=== PATIENT | male | born 1935 | race Caucasian/White ===

== ENCOUNTER 2016-04-30 08:18 | Emergency (ER) | payer MEDICARE, BC ==
[~2016-04-30] VITALS: Ht 182.9 cm; Wt 104.6 kg
[~2016-04-30 08:18] MED LIST: AMLO10 PO; ASPI-110 PO; BUSPAR PO; CELE200C PO; FERR1TAB36 PO; FURO80TA PO; GABA100C4 PO; MUCI600T PO; MULT1TAB84 PO; NEBI20 PO; OMEP20TA PO; POTA-243 PO; SINE25TA PO; TAMS0.4C4 PO; ZOCO20TA PO
[2016-04-30 08:27] VITALS: BP 139/63; PULSE 61; RESP 18; TEMP 97.7
[2016-04-30] MEDS ORDERED: VIAG25TA PO (08:44)
--- NOTE | 2016-04-30 08:57 | PD ---
HPI Chief Complaint: Headache Time Seen by Provider: 08:45 Travel History International Travel<30 days: No Contact w/Intl Traveler<30days: No Traveled to known affect area: No History of Present Illness HPI Patient presents with complaints of ringing in his ears for 3 days. Denies any head trauma. Denies any recent illness. Denies any nausea vomiting diarrhea or fever. He does take aspirin daily. He has been cleaning his ears with Q- tips to attempt to resolve this issue. PFSH Past Medical History Hx Anticoagulant Therapy: Yes (asa 81mg) Arthritis: Yes Asthma: No Autoimmune Disease: No Blood Disorders: No Anxiety: Yes Depression: No Heart Rhythm Problems: No Cancer: Yes (SKIN CANCER-NOSE, chin, shoulder, and back; COLON CANCER) Cardiac Catheterization: Yes Cardiovascular Problems: Yes (htn on meds) High Cholesterol: Yes Chemotherapy: Yes (1968) Chest Pain: No Congestive Heart Failure: No COPD: No Cerebrovascular Accident: No Diabetes: Yes Patient Takes Glucophage: No Diminished Hearing: No Diverticulitis: Yes Endocrine: No Gastrointestinal Disorders: Yes (DIVERTICULITIS) GERD: Yes Genitourinary: No Headaches: No Hepatitis: No Hiatal Hernia: Yes Heparin Induced Thrombocytopen: No Hypertension: Yes Immune Disorder: No Implanted Vascular Access Dvce: No Kidney Stones: No Musculoskeletal: Yes Neurologic: Yes (PARKINSONS) Parkinson's Disease: Yes Psychiatric: Yes Reproductive: No Respiratory: Yes (copd) Immunizations Current: Yes Migraines: No Radiation Therapy: Yes Renal Failure: No Seizures: No Sleep Apnea: No Thyroid Disease: No Ulcer: No Past Surgical History Abdominal Surgery: Yes (BILATERAL INGUINAL HERNIA REPAIR; COLON RESECTION) AICD: No Body Medical Devices: BILATERAL KNEES; 2 rods, plate, 18 screws Cardiac Surgery: No Cholecystectomy: Yes Coronary Artery Bypass Graft: No Ear Surgery: No Endocrine Surgery: No Eye Surgery: Yes (WALDO BLEPH 2012 /CATARACTS) Genitourinary Surgery: No Hysterectomy: No Joint Replacement: Yes (BILATERAL KNEES) Neurologic Surgery: No Oral Surgery: No Pacemaker: No Other Surgery: Yes (NASAL SX SECONDAY TO [place]) Social History Alcohol Use: Yes (OCCASSIONALY ) Tobacco Use: No Substance Use: No Allergies-Medications (Allergen,Severity, Reaction): Coded Allergies: Morphine (Verified Allergy, Intermediate, 04/30/16) Reported Meds & Prescriptions Reported Meds & Active Scripts Active Norvasc (Amlodipine Besylate) 10 Mg Tab 10 Mg PO DAILY 30 Days Reported Viagra (Sildenafil Citrate) 25 Mg Tab Unknown Dose PO DAILY PRN Gabapentin 100 Mg Cap 100 Mg PO TID Sinemet (Carbidopa-Levodopa) 25-100 Mg Tab 1 Tab PO TID [Buspar] 15 Mg PO TID Zocor (Simvastatin) 20 Mg Tab 20 Mg PO DAILY Omeprazole 20 Mg Tab 20 Mg PO DAILY Bystolic (Nebivolol) 20 Mg Tab 20 Mg PO DAILY Multivitamin Adults (Multiple Vitamins W/ Minerals) 1 Tab 1 Tab PO DAILY Iron (Ferrous Sulfate) 325 Mg Tab 325 Mg PO TIDPC Aspirin 81 (Aspirin) 81 Mg Tabdr 81 Mg PO DAILY Tamsulosin (Tamsulosin HCl) 0.4 Mg Cap 0.4 Mg PO HS Furosemide 80 Mg Tab 80 Mg PO DAILY Klor-Con 10 (Potassium Chloride) 10 Meq Tab 5 Meq PO DAILY Review of Systems General / Constitutional: No: Fever Eyes: No: Visual changes HENT: Positive: Other (ringing in his ears), No: Headaches Cardiovascular: No: Chest Pain or Discomfort Respiratory: No: Shortness of Breath Gastrointestinal: No: Abdominal Pain Genitourinary: No: Dysuria Musculoskeletal: No: Pain Skin: No Rash Neurologic: No: Weakness Psychiatric: No: Depression Endocrine: No: Polydipsia Hematologic/Lymphatic: No: Easy Bruising Physical Exam Narrative GENERAL: Well-nourished, well-developed patient. SKIN: Warm and dry. HEAD: Normocephalic. Right external canal is mildly erythematous TM is cloudy without perforation or erythema Left external canal reveals small amount of wax with trauma to the canal and a small coagulation of bright red blood, TM is cloudy without perforation or erythema EYES: No scleral icterus. No injection or drainage. NECK: Supple, trachea midline. No JVD or lymphadenopathy. CARDIOVASCULAR: Regular rate and rhythm without murmurs, gallops, or rubs. RESPIRATORY: Breath sounds equal bilaterally. No accessory muscle use. GASTROINTESTINAL: Abdomen soft, non-tender, nondistended. MUSCULOSKELETAL: No cyanosis, or edema. BACK: Nontender without obvious deformity. No CVA tenderness. Data Data Last Documented VS Vital Signs Date Time Temp Pulse Resp B/P Pulse Ox O2 Delivery O2 Flow Rate FiO2 04/30/16 08:35 16 96 Room Air 04/30/16 08:27 97.7 61 139/63 [facility] Medical Decision Making Medical Screen Exam Complete: Yes Emergency Medical Condition: Yes Differential Diagnosis Tinnitus, medication side effect, acoustic neuroma, otitis media, Mnire's Narrative Course Assessment and plan discussed with patient at bedside, ears were cleaned using gentle irrigation. Diagnosis Primary Impression: Bilateral tinnitus Patient Instructions: General Instructions Additional Instructions: Encouraged to hold aspirin until he can follow up with PCP. Encourage cessation of Q-tip use. External canal drops for damage caused by Q-tips. Med/Other Pt SpecificInfo: Prescription(s) given Scripts Hlpvkici-Xominooka-LB Otic Drops (Cortisporin HC Otic Drops)3.5-10,000-1 Mg- Units-% Soln4 Drop EACH EAR QID #1 BOTTLE Ref 0 Prov:Janusz Huang MD 04/30/16 Disposition: 01 DISCHARGE HOME Condition: Good Janusz Huang MD Apr 30, 2016 08:57
[2016-04-30] MEDS ORDERED: CORT1SOL EACH EAR (09:10)
== END 2016-04-30 09:28 | disposition home or self-care (01) ==
LOC: PHED 08:18
DX: H93.13 Tinnitus, bilateral (principal); Z79.82 Long term (current) use of aspirin; M19.90 Unspecified osteoarthritis, unspecified site; F41.9 Anxiety disorder, unspecified; I10 Essential (primary) hypertension; E78.00 Pure hypercholesterolemia, unspecified; E11.9 Type 2 diabetes mellitus without complications
CPT/HCPCS: 99283

== ENCOUNTER 2016-08-23 08:49 | Emergency (ER) | payer MEDICARE, BC ==
[~2016-08-23] VITALS: Ht 182.9 cm; Wt 102.9 kg
[~2016-08-23 08:49] MED LIST changes: -CELE200C PO; +CORT1SOL EACH EAR; -MUCI600T PO; +VIAG25TA PO
[2016-08-23 08:56] VITALS: BP 121/58; PULSE 63; RESP 16; TEMP 97.5; O2SAT 96
[2016-08-23] MEDS ORDERED: BUSP15TA PO (09:10)
[2016-08-23] MEDS ORDERED: COLA100C3 PO (09:12)
[2016-08-23] MEDS ORDERED: ALBU0.08 NEB (09:12)
[2016-08-23] MEDS ORDERED: TRIA1TAB21 PO (09:12)
[2016-08-23] MEDS ORDERED: VITA100064 PO (09:12)
[2016-08-23] MEDS ORDERED: GLUC1CAP14 PO (09:13)
--- NOTE | 2016-08-23 09:31 | PD ---
HPI Chief Complaint: Fall Time Seen by Provider: 09:20 Travel History International Travel<30 days: No Contact w/Intl Traveler<30days: No Traveled to known affect area: No History of Present Illness HPI This is an 80 year old male who presents to the emergency department reporting left hip pain for 2 weeks. Pt. reports that 2.5 weeks ago he fell while he was going up some stairs. After he thought he could treat himself at home with pain medication. The pain is sharp, constant, severe, worse with weight bearing and turning on his side. He denies any numbness or weakness. He denies any other injuries. PFSH Past Medical History Hx Anticoagulant Therapy: Yes (asa 81mg) Arthritis: Yes Asthma: No Autoimmune Disease: No Blood Disorders: No Anxiety: Yes Depression: No Heart Rhythm Problems: No Cancer: Yes (SKIN CANCER-NOSE, chin, shoulder, and back; COLON CANCER) Cardiac Catheterization: Yes Cardiovascular Problems: Yes (htn on meds) High Cholesterol: Yes Chemotherapy: Yes (1967) Chest Pain: No Congestive Heart Failure: No COPD: No Cerebrovascular Accident: No Diabetes: Yes Patient Takes Glucophage: No Diminished Hearing: No Diverticulitis: Yes Endocrine: No Gastrointestinal Disorders: Yes (DIVERTICULITIS) GERD: Yes Genitourinary: No Headaches: No Hepatitis: No Hiatal Hernia: Yes Heparin Induced Thrombocytopen: No Hypertension: Yes Immune Disorder: No Implanted Vascular Access Dvce: No Kidney Stones: No Musculoskeletal: Yes Neurologic: Yes (PARKINSONS) Parkinson's Disease: Yes Psychiatric: Yes Reproductive: No Respiratory: Yes (copd) Immunizations Current: Yes Migraines: No Radiation Therapy: Yes Renal Failure: No Seizures: No Sleep Apnea: No Thyroid Disease: No Ulcer: No Influenza Vaccination: Yes ?: Not Past Surgical History Abdominal Surgery: Yes (BILATERAL INGUINAL HERNIA REPAIR; COLON RESECTION) AICD: No Body Medical Devices: BILATERAL KNEES; 2 rods, plate, 18 screws Cardiac Surgery: No Cholecystectomy: Yes Coronary Artery Bypass Graft: No Ear Surgery: No Endocrine Surgery: No Eye Surgery: Yes (WALDO BLEPH 2012 /CATARACTS) Genitourinary Surgery: No Hysterectomy: No Joint Replacement: Yes (BILATERAL KNEES) Neurologic Surgery: No Oral Surgery: No Pacemaker: No Other Surgery: Yes (NASAL SX SECONDAY TO [place]) Social History Alcohol Use: Yes (OCCASSIONALY ) Tobacco Use: No Substance Use: No Allergies-Medications (Allergen,Severity, Reaction): Coded Allergies: Morphine (Verified Allergy, Intermediate, 08/23/16) Reported Meds & Prescriptions Reported Meds & Active Scripts Active Reported Glucosamine-Chondroitin 500-400 Mg Cap 1 Cap PO DAILY Albuterol Neb (Albuterol Sulfate) 2.5 Mg/3 Ml Neb 2.5 Mg NEB Q4HR NEB PRN Colace (Docusate Sodium) 100 Mg Cap 100 Mg PO BID Vitamin D (Cholecalciferol) 1,000 Unit Tab 1,000 Units PO DAILY Triazolam 0.25 Mg Tab 0.25 Mg PO HS Buspirone (Buspirone HCl) 15 Mg Tab 15 Mg PO TID Viagra (Sildenafil Citrate) 25 Mg Tab Unknown Dose PO DAILY PRN Gabapentin 100 Mg Cap 100 Mg PO TID Sinemet (Carbidopa-Levodopa) 25-100 Mg Tab 1 Tab PO TID Zocor (Simvastatin) 20 Mg Tab 20 Mg PO DAILY Omeprazole 20 Mg Tab 20 Mg PO DAILY Bystolic (Nebivolol) 20 Mg Tab 10 Mg PO DAILY Multivitamin Adults (Multiple Vitamins W/ Minerals) 1 Tab 1 Tab PO DAILY Iron (Ferrous Sulfate) 325 Mg Tab 325 Mg PO TIDPC Aspirin 81 (Aspirin) 81 Mg Tabdr 81 Mg PO DAILY Tamsulosin (Tamsulosin HCl) 0.4 Mg Cap 0.4 Mg PO HS Furosemide 80 Mg Tab 80 Mg PO DAILY Klor-Con 10 (Potassium Chloride) 10 Meq Tab 3 Meq PO DAILY Review of Systems Except as stated in HPI: all other systems reviewed are Neg Physical Exam Narrative GENERAL:Well appearing, no acute distress SKIN: Focused skin assessment warm and dry. HEAD: Atraumatic. Normocephalic. EYES: Pupils equal and round. No injection or drainage. ENT: Moist mucous membranes NECK: Trachea midline. CARDIOVASCULAR: Regular rate and rhythm. No murmur appreciated. 2+ d.p. pulse on the left lower extremity with normal capillary refill. RESPIRATORY: Clear to auscultation. Breath sounds equal bilaterally. GASTROINTESTINAL: Abdomen soft, non-tender, nondistended. MUSCULOSKELETAL: Pain with hip flexion on the left side NEUROLOGICAL: Awake and alert. No obvious cranial nerve deficits. 4+/5 strength bilaterally (baseline) PSYCHIATRIC: Appropriate mood and affect; insight and judgment normal. Data Data Last Documented VS Vital Signs Date Time Temp Pulse Resp B/P Pulse Ox O2 Delivery O2 Flow Rate FiO2 08/23/16 10:47 18 131/59 97 Room Air 08/23/16 08:56 97.5 63 Orders Femur (Ap & Lat/2vws) (08/23/16 ) Hip, Uni(Ap&Lat) W Ap Pelvis (08/23/16 ) Spine, Lumbar Comp W/Obliq (08/23/16 ) Ct Hip W/O Contrast (08/23/16 ) MDM Medical Decision Making Medical Screen Exam Complete: Yes Emergency Medical Condition: Yes Interpretation(s) Afebrile, no tachycardia, normotensive Last 24 hours Impressions Lumbar Spine X-Ray 08/23/16 0000 Signed Impressions: Service Date/Time: Tuesday, August 23, 2016 10:46 - CONCLUSION: 1. Moderate degenerative changes as described above. There is no evidence of acute fracture. Bud Martinez MD Hip and Pelvis X-Ray 08/23/16 0000 Signed Impressions: Service Date/Time: Tuesday, August 23, 2016 10:45 - CONCLUSION: 1. Mild degenerative changes as described above. There is no evidence of acute fracture. Bud Martinez MD Femur X-Ray 08/23/16 0000 Signed Impressions: Service Date/Time: Tuesday, August 23, 2016 10:44 - CONCLUSION: 1. Previous ORIF 2. There is no evidence of acute fracture. Bud Martinez MD Differential Diagnosis Femur fracture, pubic ramus fracture, hip sprain, compression fracture Narrative Course This is an 80-year-old male who presents to the emergency department with left hip pain that's been going on for 2-1/2 weeks ever since he had a fall. He also reports chronic pain proximal to the knee associated with a prior femur fracture there. He has a normal neurovascular exam. He has very minimal pain with range of motion of the hip except with some internal rotation. He's been able to weight-bear and has been walking with a walker for 2-1/2 weeks. I have a very low suspicion for occult femur fracture given his benign exam but given the persistent pain I performed a CT of the hip which was negative for fracture. Patient is safe to follow-up with Dr. Ng as an outpatient. I Diagnosis Primary Impression: Hip pain Qualified Code: M25.552 - Pain of left hip joint Patient Instructions: General Instructions Additional Instructions: If you develop numbness, weakness, severe pain in your hip, or difficulty walking return to the emergency department. Follow-up with Dr. Ng as soon as possible. Med/Other Pt SpecificInfo: No Change to Meds Disposition: 01 DISCHARGE HOME Condition: Stable Nyla Monsalve MD August 23, 2016 09:30
[2016-08-23 10:47] VITALS: BP 131/59; RESP 18; O2SAT 97
--- NOTE | 2016-08-23 10:55 | RADHPO ---
EXAM DATE/TIME: 08/23/2016 10:44 [facility] COMPARISON: FEMUR LEFT (AP & LAT/2VWS), June 25, 2015, 8:03. INDICATIONS : Fall 2 weeks ago, left hip pain. MEDICAL HISTORY : None. SURGICAL HISTORY : Total knee replacement, left. left femur fracture ENCOUNTER: Initial ACUITY: 2 weeks PAIN SCORE: 7/10 LOCATION: Left posterior hip FINDINGS: There is internal fixation of a fracture of the femur with screws and cerclage wire. There is no evid ence of acute fracture. Bony mineralization is normal. Longstem total knee arthroplasty is present. Joint spaces are maintained. CONCLUSION: 1. Previous ORIF 2. There is no evidence of acute fracture. Bud Martinez MD on August 23, 2016 at 10:51 Board Certified Radiologist. This report was verified electronically.
--- NOTE | 2016-08-23 10:56 | RADHPO ---
EXAM DATE/TIME: 08/23/2016 10:45 [facility] COMPARISON: No previous studies available for comparison. INDICATIONS : Fall, left hip pain. MEDICAL HISTORY : None. SURGICAL HISTORY : Total knee replacement, left. left femur fracture ENCOUNTER: Initial ACUITY: 2 weeks PAIN SCORE: 7/10 LOCATION: Left posterior hip FINDINGS: There is no evidence of acute fracture. Bony mineralization is normal. There is mild central narrowin g of the hip joints bilaterally. Prominent vascular calcification is present. Degenerative changes pr esent at the lumbosacral junction. CONCLUSION: 1. Mild degenerative changes as described above. There is no evidence of acute fracture. Bud Martinez MD on August 23, 2016 at 10:52 Board Certified Radiologist. This report was verified electronically.
--- NOTE | 2016-08-23 10:58 | RADHPO ---
EXAM DATE/TIME: 08/23/2016 10:46 [facility] COMPARISON: No previous studies available for comparison. INDICATIONS : Fall 2 weeks ago, low back pain. MEDICAL HISTORY : None. SURGICAL HISTORY : None. ENCOUNTER: Initial ACUITY: 2 weeks PAIN SCORE: 3/10 LOCATION: low back FINDINGS: There is multilevel disc space narrowing and marginal osteophyte formation maximal at the thoracolumb ar junction. There is multilevel facet arthritis maximal at L5-S1. Prominent vascular calcification i s present. No spondylolysis or spondylolisthesis is present. There are surgical clips in the right up per quadrant compatible with prior cholecystectomy. CONCLUSION: 1. Moderate degenerative changes as described above. There is no evidence of acute fracture. Bud Martinez MD on August 23, 2016 at 10:54 Board Certified Radiologist. This report was verified electronically.
--- NOTE | 2016-08-23 12:41 | RADHPO ---
EXAM DATE/TIME: 08/23/2016 11:51 [facility] COMPARISON: No previous studies available for comparison. INDICATIONS : Fall 2 weeks ago, Left hip pain. RADIATION DOSE: 24.89 CTDIvol (mGy) MEDICAL HISTORY : Parkinsons, skin CA, SURGICAL HISTORY : Total knee replacement, left. Total knee replacement, right. ENCOUNTER: Initial ACUITY: 2 weeks PAIN SCALE: 4/10 LOCATION: Left hip TECHNIQUE: Volumetric scanning of the hip was performed. Using automated exposure control and adjustment of the mA and/or kV according to patient size, radiation dose was kept as low as reasonably achievable to o btain optimal diagnostic quality images. FINDINGS: The prostate gland is moderately enlarged impinging on the bladder base. No soft tissue hematomas kym ntified. There is no evidence of acute fracture. Bony mineralization is normal. There is mild central narrowin g of the joint space. 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 CONCLUSION: 1. There is no evidence of acute fracture. Bud Martinez MD on August 23, 2016 at 12:35 Board Certified Radiologist. This report was verified electronically.
[2016-08-23 13:01] VITALS: BP 161/73
== END 2016-08-23 13:04 | disposition home or self-care (01) ==
LOC: PHED 08:49
DX: M25.552 Pain in left hip (principal); M17.12 Unilateral primary osteoarthritis, left knee; F41.9 Anxiety disorder, unspecified; E78.00 Pure hypercholesterolemia, unspecified; I10 Essential (primary) hypertension; K21.9 Gastro-esophageal reflux disease without esophagitis; E11.9 Type 2 diabetes mellitus without complications; G20 Parkinson's disease; J44.9 Chronic obstructive pulmonary disease, unspecified
CPT/HCPCS: 72110; 73502; 73552; 73700

== ENCOUNTER 2017-03-22 16:49 | Emergency (ER) | payer MEDICARE, BC ==
[~2017-03-22] VITALS: Ht 182.9 cm; Wt 104.0 kg
[~2017-03-22 16:49] MED LIST changes: +ALBU0.08 NEB; -AMLO10 PO; -ASPI-110 PO; +ASPI1TAB57 PO; +BUSP15TA PO; -BUSPAR PO; +COLA100C3 PO; -CORT1SOL EACH EAR; +GLUC1CAP14 PO; +KLOR10TA PO; -OMEP20TA PO; +OMEP20TA93 PO; -POTA-243 PO; +TRIA1TAB21 PO; +VITA100064 PO
[2017-03-22 16:59] VITALS: PULSE 74; RESP 16; TEMP 97.3; O2SAT 97
--- NOTE | 2017-03-22 17:02 | PD ---
HPI Chief Complaint: Fall Time Seen by Provider: 17:02 Travel History International Travel<30 days: No Contact w/Intl Traveler<30days: No Traveled to known affect area: No History of Present Illness HPI 81-year-old male was brought to the emergency room by his after he lost balance and fell backwards from his walker. Patient has history of Parkinson's disease. He thinks that his walker hit a pothole. He has been bleeding from the back of his head. He did not lose consciousness. Patient is not on any blood thinners. He did not remember his last tetanus shot. Vital signs are stable. [facility] Past Medical History Narrative Medical List of his past medical, surgical, social and family history is reviewed from the nursing note. Hx Anticoagulant Therapy: Yes (asa 81mg) Arthritis: Yes Asthma: No Autoimmune Disease: No Blood Disorders: No Anxiety: Yes Depression: No Heart Rhythm Problems: No Cancer: Yes (SKIN CANCER-NOSE, chin, shoulder, and back; COLON CANCER) Cardiac Catheterization: Yes Cardiovascular Problems: Yes (htn on meds) High Cholesterol: Yes Chemotherapy: Yes (1968) Chest Pain: No Congestive Heart Failure: No COPD: No Cerebrovascular Accident: No Diabetes: Yes Diminished Hearing: No Diverticulitis: Yes Endocrine: No Gastrointestinal Disorders: Yes (DIVERTICULITIS) GERD: Yes Genitourinary: No Headaches: No Hepatitis: No Hiatal Hernia: Yes Heparin Induced Thrombocytopen: No Hypertension: Yes Immune Disorder: No Implanted Vascular Access Dvce: No Kidney Stones: No Musculoskeletal: Yes Neurologic: Yes (PARKINSONS) Parkinson's Disease: Yes Psychiatric: Yes Reproductive: No Respiratory: Yes (copd) Immunizations Current: Yes Migraines: No Radiation Therapy: Yes Renal Failure: No Seizures: No Sleep Apnea: No Thyroid Disease: No Ulcer: No Past Surgical History Abdominal Surgery: Yes (BILATERAL INGUINAL HERNIA REPAIR; COLON RESECTION) AICD: No Body Medical Devices: BILATERAL KNEES; 2 rods, plate, 18 screws Cardiac Surgery: No Cholecystectomy: Yes Coronary Artery Bypass Graft: No Ear Surgery: No Endocrine Surgery: No Eye Surgery: Yes (WALDO BLEPH 2012 /CATARACTS) Genitourinary Surgery: No Hysterectomy: No Joint Replacement: Yes (BILATERAL KNEES) Neurologic Surgery: No Oral Surgery: No Pacemaker: No Other Surgery: Yes (NASAL SX SECONDAY TO [place]) Social History Alcohol Use: Yes (OCCASSIONALY ) Tobacco Use: No Substance Use: No Allergies-Medications (Allergen,Severity, Reaction): Coded Allergies: morphine (Unverified Allergy, Intermediate, 03/23/17) Comments List of his allergies reviewed from the nursing note. Reported Meds & Prescriptions Reported Meds & Active Scripts Active Bacitracin Topical 500 Unit/Gm Oint 1 Applic TOPICAL BID Reported Halcion (Triazolam) 0.25 Mg Tab 0.25 Mg PO HS Ropinirole 0.25 Mg Tab 0.25 Mg PO TID Iron (Ferrous Gluconate) 236 Mg (27 Mg Iron) Tab 1 Tab PO TID Arthri-Flex Tablet (Gluc/MSM/Colgn2/Hyal/Antiarth3) 375 Mg-375 Mg-20 Mg Tablet 1 Tab PO DAILY Cosamin DS (Glucosamine-Chondroitin) 500-400 Mg Tab 1 Tab PO DAILY Multivitamins (Multiple Vitamin) 1 Cap Cap 1 Cap PO DAILY Losartan (Losartan Potassium) 100 Mg Tab 100 Mg PO DAILY Potassium Chloride ER (Potassium Chloride) 8 Meq Tab 8 Meq PO DAILY Albuterol Neb (Albuterol Sulfate) 2.5 Mg/3 Ml Neb 2.5 Mg NEB Q4HR NEB PRN Vitamin D3 (Cholecalciferol) 1,000 Unit Tab 1,000 Units PO DAILY Buspirone (Buspirone HCl) 15 Mg Tab 15 Mg PO TID Gabapentin 100 Mg Cap 100 Mg PO TID Sinemet (Carbidopa-Levodopa) 25-100 Mg Tab 1 Tab PO TID Zocor (Simvastatin) 20 Mg Tab 20 Mg PO DAILY Omeprazole 20 Mg Tab 20 Mg PO DAILY Bystolic (Nebivolol) 20 Mg Tab 10 Mg PO DAILY Aspirin 81 (Aspirin) 81 Mg Tabdr 81 Mg PO DAILY Tamsulosin (Tamsulosin HCl) 0.4 Mg Cap 0.4 Mg PO HS Furosemide 80 Mg Tab 80 Mg PO DAILY Narrative Medication List of his home medications reviewed from the nursing note. Review of Systems Except as stated in HPI: all other systems reviewed are Neg Neurologic: Positive: Headache Physical Exam Narrative GENERAL: Awake, alert, elderly, Parkinson's, mild distress SKIN: Focused skin assessment warm/dry. Left elbow superficial abrasion with no active bleeding HEAD: Occipital scalp has a laceration which is bleeding. There is 3 stitches from his previous biopsy EYES: Pupils equal and round. No scleral icterus. No injection or drainage. ENT: No nasal bleeding or discharge. Mucous membranes pink and moist. NECK: Trachea midline. No JVD. CARDIOVASCULAR: Regular rate and rhythm. No murmur appreciated. RESPIRATORY: No accessory muscle use. Clear to auscultation. Breath sounds equal bilaterally. GASTROINTESTINAL: Abdomen soft, non-tender, nondistended. Hepatic and splenic margins not palpable. MUSCULOSKELETAL: No obvious deformities. No clubbing. No cyanosis. No edema. NEUROLOGICAL: Awake and alert. No obvious cranial nerve deficits. Motor grossly within normal limits. Normal speech. PSYCHIATRIC: Appropriate mood and affect; insight and judgment normal. Data Data Last Documented VS Orders Orders Ct Brain W/O Iv Contrast(Rout) (03/22/17 ) Ct Cerv Spine W/O Contrast (03/22/17 ) Tetanus/Diphtheria Tox Adult (Tetanus/Di (03/22/17 17:30) Lidocai-Epi 2%-1:100,000 Inj (Xylocaine- (03/22/17 18:30) Acetaminophen (Tylenol) (03/22/17 18:45) Ed Discharge Order (03/22/17 19:03) MDM Medical Decision Making Medical Screen Exam Complete: Yes Emergency Medical Condition: Yes Medical Record Reviewed: Yes Differential Diagnosis Intracranial bleed, cervical fracture Narrative Course 6:[address] scan of the head and C-spine are negative. His wound will be repaired by the PA. Please refer to his procedure note. Patient was given tetanus shot and Tylenol for his headache. I will discharge him home. Procedures EKG Prior to Arrival: No Diagnosis Primary Impression: Fall Qualified Codes: W19.XXXA - Unspecified fall, initial encounter Additional Impressions: Closed head injury Qualified Codes: S09.90XA - Unspecified injury of head, initial encounter Abrasion Referrals: Primary Care Physician Additional Instructions: The stitches need to come out in 7-10 days. Apply bacitracin twice a day until the stitches are out. Return to the ER if the condition worsens or any other new concerns. Take Tylenol in case of headache. Med/Other Pt SpecificInfo: Prescription(s) given Scripts Bacitracin Topical (Bacitracin Topical) 500 Unit/Gm Oint 1 APPLIC TOPICAL BID for Infection, #30 GM 0 Refills Prov: Michelle Grayson MD 03/22/17 Disposition: 01 DISCHARGE HOME Condition: Stable Michelle Grayson MD Mar 22, 2017 17:02
[2017-03-22] MEDS ORDERED: TETANUS/DIPHTHERIA TOXOID ADULT 0.5 ML VIAL IM ONE (17:30)
[2017-03-22] MEDS ORDERED: MISC1TAB PO (17:41)
[2017-03-22] MEDS ORDERED: MULTCAP3 PO (17:41)
[2017-03-22] MEDS ORDERED: POTA8TAB PO (17:41)
[2017-03-22] MEDS ORDERED: LOSA100T PO (17:41)
[2017-03-22] MEDS ORDERED: COSA500T PO (17:41)
--- NOTE | 2017-03-22 17:44 | RADRPT ---
EXAM DATE/TIME: 03/22/2017 17:19 [facility] COMPARISON: CT BRAIN W/O CONTRAST, April 07, 2016, 11:29. INDICATIONS : Trauma, fall backwards. RADIATION DOSE: 65.35 CTDIvol (mGy) MEDICAL HISTORY : Hypertension. Parkinsons. Carcinoma, skin. SURGICAL HISTORY : Skin cancer removed posterior scalp. ENCOUNTER: Initial ACUITY: 1 day PAIN SCALE: 7/10 LOCATION: posterior cranial. TECHNIQUE: Multiple contiguous axial images were obtained of the head. Using automated exposure control and adj ustment of the mA and/or kV according to patient size, radiation dose was kept as low as reasonably a chievable to obtain optimal diagnostic quality images. DICOM format image data is available electro nically for review and comparison. FINDINGS: CEREBRUM: Mild diffuse cerebral volume loss. The ventricles are normal for degree of atrophy. Mild periventric ular white matter hypodensities. No evidence of midline shift, mass lesion, hemorrhage or acute infar ction. No extra-axial fluid collections are seen. POSTERIOR FOSSA: The cerebellum and brainstem are intact. The 4th ventricle is midline. The cerebellopontine angle i s unremarkable. EXTRACRANIAL: The visualized portion of the orbits is intact. Subtle fluid in the right maxillary sinus. SKULL: The calvaria is intact. No evidence of skull fracture. CONCLUSION: 1. Senescent changes without acute intracranial abnormality. 2. Subtle fluid in the right maxillary sinus without definite facial fracture. Berto Tay MD on March 22, 2017 at 17:39 Board Certified Radiologist. This report was verified electronically.
[2017-03-22] MEDS ORDERED: ROPI0.25 PO (17:47)
[2017-03-22] MEDS ORDERED: HALC0.25 PO (17:47)
[2017-03-22] MEDS ORDERED: IRON27TA PO (17:47)
--- NOTE | 2017-03-22 18:01 | RADRPT ---
EXAM DATE/TIME: 03/22/2017 17:19 [facility] COMPARISON: CT CERVICAL SPINE W/O CONTRAST, April 07, 2016, 11:29. INDICATIONS : Trauma, fall backwards. RADIATION DOSE: 26.64 CTDIvol (mGy) MEDICAL HISTORY : Hypertension. Parkinsons. SURGICAL HISTORY : None. ENCOUNTER: Initial ACUITY: 1 day PAIN SCALE: 0/10 LOCATION: neck TECHNIQUE: Volumetric scanning of the cervical spine was performed. Multiplanar reconstructions in the sagittal, coronal and oblique axial planes were performed. Using automated exposure control and adjustment o f the mA and/or kV according to patient size, radiation dose was kept as low as reasonably achievable to obtain optimal diagnostic quality images. DICOM format image data is available electronically f or review and comparison. FINDINGS: Vertebral body heights are maintained. Osseous structures are intact without evidence for acute bony fracture. Dens is intact. Loss of normal cervical lordosis. Sagittal alignment is maintained. There i s a normal C1-2 relationship. Facets are normally aligned. There is no significant prevertebral soft tissue hematoma. Multilevel degenerative spondylosis of the cervical spine most prominently at C4-6. No significant cervical adenopathy or gross mass. Redemonstration of 8mm left apical nodule unchanged from prior exam. CONCLUSION: 1. No acute fracture or subluxation. 2. Redemonstration of cervical kyphosis with multilevel degenerative spondylosis in the lower cervica l spine. 3. 7mm left apical lung nodule. Nodule has been stable for one year. Followup examination may be perf ormed in 6-12 months to document stability as clinically warranted. Berto Tay MD on March 22, 2017 at 17:55 Board Certified Radiologist. This report was verified electronically.
[2017-03-22] MEDS ORDERED: LIDOCAINE 2%/EPINEPHrine 1:100,000 20ML MDV NERV BLOCK ONE (18:30)
[2017-03-22] MEDS ORDERED: BACI500O9 TOPICAL (18:37)
[2017-03-22] MEDS ORDERED: ACETAMINOPHEN 325 MG TAB PO ONE (18:45)
--- NOTE | 2017-03-22 19:03 | PD ---
Physical Exam Narrative I was asked by Dr. Grayson to repair the patient's laceration. Please see her documentation for full H&P. Data Data Last Documented VS Vital Signs Date Time Temp Pulse Resp B/P (MAP) Pulse Ox O2 Delivery O2 Flow Rate FiO2 03/22/17 17:15 16 03/22/17 16:59 [address] Brain W/O Iv Contrast(Rout) (03/22/17 ) Ct Cerv Spine W/O Contrast (03/22/17 ) Tetanus/Diphtheria Tox Adult (Tetanus/Di (03/22/17 17:30) Lidocai-Epi 2%-1:100,000 Inj (Xylocaine- (03/22/17 18:30) Acetaminophen (Tylenol) (03/22/17 18:45) MDM Supervised Visit with CHUCK: No Procedures Procedure Narrative LACERATION REPAIR LOCATION: Right occipital lobe LENGTH: Approximately 1 cm total length NUMBER OF STITCHES/ESSENCE: 1 simple mattress REPAIR: Verbal consent was obtained. The area of the laceration was cleaned and prepped. The laceration was infiltrated with lidocaine with epi. The wound was copiously irrigated and explored without evidence of foreign body, bony involvement, or neurovascular injury. The wound was closed using 3-0 Prolene. This was a single layer repair. A sterile dressing was applied by nurse. The patient was advised to keep the affected area as clean and dry as possible using soap and water. There were no complications. Patient tolerated the procedure well. Diagnosis Primary Impression: Fall Qualified Codes: W19.XXXA - Unspecified fall, initial encounter Additional Impressions: Closed head injury Qualified Codes: S09.90XA - Unspecified injury of head, initial encounter Abrasion Referrals: Primary Care Physician Patient Instructions: General Instructions, Care For Your Stitches (ED), Head Injury (ED), Abrasion (ED), Fall Prevention (ED) Additional Instruction: The stitches need to come out in 7-10 days. Apply bacitracin twice a day until the stitches are out. Return to the ER if the condition worsens or any other new concerns. Take Tylenol in case of headache. Scripts Bacitracin Topical (Bacitracin Topical) 500 Unit/Gm Oint 1 APPLIC TOPICAL BID for Infection, #30 GM 0 Refills Prov: Michelle Grayson MD 03/22/17 Disposition: 01 DISCHARGE HOME Condition: Stable Asa Blakely Mar 22, 2017 19:03
[2017-03-22 19:33] VITALS: BP 202/78
== END 2017-03-22 19:39 | disposition home or self-care (01) ==
LOC: PHED 16:49
DX: S01.01XA Laceration without foreign body of scalp, initial encounter (principal)
CPT/HCPCS: 12001; 70450; 72125; 90471; 90714

== ENCOUNTER 2017-03-23 20:13 | Emergency (ER) | payer MEDICARE, BC ==
[~2017-03-23] VITALS: Ht 182.9 cm; Wt 104.0 kg
[~2017-03-23 20:13] MED LIST changes: +BACI500O9 TOPICAL; -COLA100C3 PO; +COSA500T PO; -FERR1TAB36 PO; -GLUC1CAP14 PO; +HALC0.25 PO; +IRON27TA PO; -KLOR10TA PO; +LOSA100T PO; +MISC1TAB PO; -MULT1TAB84 PO; +MULTCAP3 PO; +POTA8TAB PO; +ROPI0.25 PO; -TRIA1TAB21 PO; -VIAG25TA PO
[2017-03-23 20:28] VITALS: BP 194/81; PULSE 63; RESP 18; TEMP 98.2; O2SAT 96
[2017-03-23 20:39] VITALS: RESP 18; O2SAT 96
[2017-03-23 20:42] LABS: BASOPHIL % 0.4 % (0.0-2.0); EOSINOPHIL # 0.4 TH/MM3 (0-0.4); EOSINOPHIL % 4.8 % (0.0-4.0); HEMATOCRIT 40.8 % (39.0-51.0); HEMO FLAGS DIFF FINAL; LYMPH % 16.6 % (9.0-44.0); LYMPHOCYTE # 1.4 TH/MM3 (1.0-4.8); MEAN CELL VOLUME 91.1 FL (80.0-100.0); MEAN CORPUSCULAR HEMOGLOBIN 30.9 PG (27.0-34.0); MEAN CORPUSCULAR HGB CONC 33.9 % (32.0-36.0); NEUT % 70.2 % (16.0-70.0); PLATELET COUNT 331 TH/MM3 (150-450); RED BLOOD COUNT 4.48 MIL/MM3 (4.50-5.90); RED CELL DISTRIBUTION WIDTH 11.8 % (11.6-17.2); WHITE BLOOD COUNT 8.5 TH/MM3 (4.0-11.0)
[2017-03-23 20:50] LABS: CHLORIDE 102 MEQ/L (98-107); POTASSIUM 3.7 MEQ/L (3.5-5.1); SODIUM (NA) 140 MEQ/L (136-145)
[2017-03-23 20:53] LABS: ANION GAP 9 MEQ/L (5-15); BICARBONATE 29.3 MEQ/L (21.0-32.0); BLOOD UREA NITROGEN 14 MG/DL (7-18)
--- NOTE | 2017-03-23 20:53 | PD ---
HPI Chief Complaint: Chest Pain Time Seen by Provider: 20:41 Travel History International Travel<30 days: No Contact w/Intl Traveler<30days: No Traveled to known affect area: No History of Present Illness HPI The patient is an 81-year-old male who complains of chest pressure in the lower portion of his chest, slightly to the left of the sternum since 7:30 PM tonight. He denies any nausea, diaphoresis or radiation of pain but does have some shortness of breath. He does have a history of heart disease and has a blockage that has been followed by Dr. Petersen, his pack worker, for several years. He does have a history of Parkinson's disease. He was in this emergency department yesterday for a fall and apparent recovered completely because he was out eating a large meal today prior to his chest discomfort. PFSH Past Medical History Hx Anticoagulant Therapy: Yes (asa 81mg) Arthritis: Yes Asthma: No Autoimmune Disease: No Blood Disorders: No Anxiety: Yes Depression: No Heart Rhythm Problems: No Cancer: Yes (SKIN CANCER-NOSE, chin, shoulder, and back; COLON CANCER) Cardiac Catheterization: Yes Cardiovascular Problems: Yes (htn on meds) High Cholesterol: Yes Chemotherapy: Yes (1968) Chest Pain: No Congestive Heart Failure: No COPD: No Cerebrovascular Accident: No Coronary Artery Disease: Yes Diabetes: Yes (BORDERLINE) Patient Takes Glucophage: No Diminished Hearing: No Diverticulitis: Yes Endocrine: No Gastrointestinal Disorders: Yes (DIVERTICULITIS) GERD: Yes Genitourinary: No Headaches: No Hepatitis: No Hiatal Hernia: Yes Heparin Induced Thrombocytopen: No Hypertension: Yes Immune Disorder: No Implanted Vascular Access Dvce: No Kidney Stones: No Medical other: No Musculoskeletal: Yes Neurologic: Yes (PARKINSONS) Parkinson's Disease: Yes Psychiatric: Yes Reproductive: No Respiratory: Yes (copd) Immunizations Current: Yes Migraines: No Radiation Therapy: Yes Renal Failure: No Seizures: No Sleep Apnea: No Thyroid Disease: No Ulcer: No Tetanus Vaccination: < 5 Years Influenza Vaccination: Yes Past Surgical History Abdominal Surgery: Yes (BILATERAL INGUINAL HERNIA REPAIR; COLON RESECTION) AICD: No Body Medical Devices: BILATERAL KNEES; 2 rods, plate, 18 screws Cardiac Surgery: No Cholecystectomy: Yes Coronary Artery Bypass Graft: No Ear Surgery: No Endocrine Surgery: No Eye Surgery: Yes (WALDO BLEPH 2012 /CATARACTS) Genitourinary Surgery: No Hysterectomy: No Joint Replacement: Yes (BILATERAL KNEES) Neurologic Surgery: No Oral Surgery: No Pacemaker: No Other Surgery: Yes (NASAL SX SECONDAY TO [place]) Family History Family Myocardial Infarction: No Social History Alcohol Use: Yes (SELDOM) Tobacco Use: No (FORMER) Substance Use: No Allergies-Medications (Allergen,Severity, Reaction): Coded Allergies: morphine (Unverified Allergy, Intermediate, 03/23/17) Reported Meds & Prescriptions Reported Meds & Active Scripts Active Bacitracin Topical 500 Unit/Gm Oint 1 Applic TOPICAL BID Reported Halcion (Triazolam) 0.25 Mg Tab 0.25 Mg PO HS Ropinirole 0.25 Mg Tab 0.25 Mg PO TID Iron (Ferrous Gluconate) 236 Mg (27 Mg Iron) Tab 1 Tab PO TID Arthri-Flex Tablet (Gluc/MSM/Colgn2/Hyal/Antiarth3) 375 Mg-375 Mg-20 Mg Tablet 1 Tab PO DAILY Cosamin DS (Glucosamine-Chondroitin) 500-400 Mg Tab 1 Tab PO DAILY Multivitamins (Multiple Vitamin) 1 Cap Cap 1 Cap PO DAILY Losartan (Losartan Potassium) 100 Mg Tab 100 Mg PO DAILY Potassium Chloride ER (Potassium Chloride) 8 Meq Tab 8 Meq PO DAILY Albuterol Neb (Albuterol Sulfate) 2.5 Mg/3 Ml Neb 2.5 Mg NEB Q4HR NEB PRN Vitamin D3 (Cholecalciferol) 1,000 Unit Tab 1,000 Units PO DAILY Buspirone (Buspirone HCl) 15 Mg Tab 15 Mg PO TID Gabapentin 100 Mg Cap 100 Mg PO TID Sinemet (Carbidopa-Levodopa) 25-100 Mg Tab 1 Tab PO TID Zocor (Simvastatin) 20 Mg Tab 20 Mg PO DAILY Omeprazole 20 Mg Tab 20 Mg PO DAILY Bystolic (Nebivolol) 20 Mg Tab 10 Mg PO DAILY Aspirin 81 (Aspirin) 81 Mg Tabdr 81 Mg PO DAILY Tamsulosin (Tamsulosin HCl) 0.4 Mg Cap 0.4 Mg PO HS Furosemide 80 Mg Tab 80 Mg PO DAILY Review of Systems Except as stated in HPI: all other systems reviewed are Neg Physical Exam Narrative GENERAL: The patient is anxious, alert, oriented 3 and minimal apparent distress with his chest discomfort. His vital signs show blood pressure 194/81 but otherwise normal. SKIN: Focused skin assessment warm/dry. HEAD: Atraumatic. Normocephalic. EYES: Pupils equal and round. No scleral icterus. No injection or drainage. ENT: No nasal bleeding or discharge. Mucous membranes pink and moist. NECK: Trachea midline. No JVD. CARDIOVASCULAR: Regular rate and rhythm. No murmur appreciated. RESPIRATORY: No accessory muscle use. Clear to auscultation. Breath sounds equal bilaterally. He cannot reproduce the patient's pain by pressing on the chest wall. GASTROINTESTINAL: Abdomen soft, non-tender, nondistended. Hepatic and splenic margins not palpable. I cannot reproduce the patient's pain by pressing on the abdomen. MUSCULOSKELETAL: No obvious deformities. No clubbing. No cyanosis. No edema. NEUROLOGICAL: Awake and alert. No obvious cranial nerve deficits. Motor grossly within normal limits. Normal speech. PSYCHIATRIC: The patient appears anxious; insight and judgment normal. Data Data Last Documented VS Vital Signs Date Time Temp Pulse Resp B/P (MAP) Pulse Ox O2 Delivery O2 Flow Rate FiO2 03/23/17 22:13 63 18 165/77 (106) 96 Room Air 03/23/17 20:28 98.2 Orders Orders Electrocardiogram (03/23/17 20:33) Complete Blood Count With Diff (03/23/17 20:33) Basic Metabolic Panel (Bmp) (03/23/17 20:33) Ckmb (Isoenzyme) Profile (03/23/17 20:33) Troponin I (03/23/17 20:33) Iv Access Insert/Monitor (03/23/17 20:33) Ecg Monitoring (03/23/17 20:33) Oxygen Administration (03/23/17 20:33) Oximetry (03/23/17 20:33) Chest, Pa & Lat (03/23/17 ) Labs Laboratory Tests Test 03/23/17 20:30 White Blood Count 8.5 TH/MM3 Red Blood Count 4.48 MIL/MM3 Hemoglobin 13.8 GM/DL Hematocrit 40.8 % Mean Corpuscular Volume 91.1 FL Mean Corpuscular Hemoglobin 30.9 PG Mean Corpuscular Hemoglobin Concent 33.9 % Red Cell Distribution Width 11.8 % Platelet Count 331 TH/MM3 Mean Platelet Volume 7.4 FL Neutrophils (%) (Auto) 70.2 % Lymphocytes (%) (Auto) 16.6 % Monocytes (%) (Auto) 8.0 % Eosinophils (%) (Auto) 4.8 % Basophils (%) (Auto) 0.4 % Neutrophils # (Auto) 6.0 TH/MM3 Lymphocytes # (Auto) 1.4 TH/MM3 Monocytes # (Auto) 0.7 TH/MM3 Eosinophils # (Auto) 0.4 TH/MM3 Basophils # (Auto) 0.0 TH/MM3 CBC Comment DIFF FINAL Differential Comment Blood Urea Nitrogen 14 MG/DL Creatinine 1.10 MG/DL Random Glucose 145 MG/DL Calcium Level 8.4 MG/DL Sodium Level 140 MEQ/L Potassium Level 3.7 MEQ/L Chloride Level 102 MEQ/L Carbon Dioxide Level 29.3 MEQ/L Anion Gap 9 MEQ/L Estimat Glomerular Filtration Rate 64 ML/MIN Total Creatine Kinase 61 U/L Troponin I LESS THAN 0.02 NG/ML MDM Medical Decision Making Medical Screen Exam Complete: Yes Emergency Medical Condition: Yes Medical Record Reviewed: Yes Interpretation(s) The EKG shows normal sinus rhythm of 63 and is completely normal. The chest x- ray shows no active disease. There are calcified left hilar lymph nodes present. The CBC is normal. The basic metabolic profile shows a GFR of 64, glucose 145 with calcium 8.4 but is otherwise normal. The cardiac enzymes are normal. Differential Diagnosis Anxiety, gastrointestinal pain, esophageal pain, atypical chest pain, gastrointestinal pain, pleuritic chest pain: Acute coronary syndrome Narrative Course The patient likely has anxiety. He also appears to have gastrointestinal pain. This does not appear to be cardiac. He should follow-up with Dr. Petersen. Diagnosis Primary Impression: Anxiety Additional Impression: Non-cardiac chest pain Additional Instructions: As we discussed, follow-up with Dr. Petersen and his primary care physician. At this time this does not look like pain from the heart. Med/Other Pt SpecificInfo: No Change to Meds Disposition: 01 DISCHARGE HOME Condition: Stable Duane Mix MD Mar 23, 2017 20:53
[2017-03-23 20:56] LABS: GLOMERULAR FILTRATION RATE 64 ML/MIN (>89)
[2017-03-23 21:07] LABS: CREATINE KINASE 61 U/L (39-308)
[2017-03-23 21:13] VITALS: BP 180/76; PULSE 60; RESP 18; O2SAT 96
--- NOTE | 2017-03-23 21:37 | RADRPT ---
EXAM DATE/TIME: 03/23/2017 20:53 [facility] COMPARISON: No previous studies available for comparison. INDICATIONS : Chest pain today MEDICAL HISTORY : Hypertension. Parkinsons. Carcinoma, skin. SURGICAL HISTORY : Skin cancer removed posterior scalp. ENCOUNTER: Initial ACUITY: 1 day PAIN SCORE: 4/10 LOCATION: Bilateral chest FINDINGS: PA and lateral views of the chest demonstrate the lungs to be symmetrically aerated without evidence of mass, infiltrate or effusion. The cardiomediastinal contours are unremarkable. Osseous structure s are intact. CONCLUSION: 1. No active disease. Calcified left hilar lymph nodes. Rosendo Montes MD on March 23, 2017 at 21:34 Board Certified Radiologist. This report was verified electronically.
[2017-03-23 22:13] VITALS: BP 165/77; PULSE 63; RESP 18; O2SAT 96
--- NOTE | 2017-03-25 12:04 | EKG ---
Date Performed: 03/23/2017 Time Performed: 20:41:51 PTAGE: 81 years EKG: Sinus rhythm NORMAL ECG PREVIOUS TRACING : 02/07/2016 08.15 DOCTOR: Kala Rowell Interpretating Date/Time 03/25/2017 12:03:18
== END 2017-03-23 22:50 | disposition home or self-care (01) ==
LOC: PHED 20:13
DX: F41.9 Anxiety disorder, unspecified (principal); E78.00 Pure hypercholesterolemia, unspecified; I10 Essential (primary) hypertension; I25.10 Atherosclerotic heart disease of native coronary artery without angina pectoris; K21.9 Gastro-esophageal reflux disease without esophagitis; G20 Parkinson's disease; Z87.891 Personal history of nicotine dependence
CPT/HCPCS: 71020; 80048; 82550; 84484; 85025; 93005; 99285

== ENCOUNTER 2017-03-27 12:03 | Emergency (ER) | payer MEDICARE, BC ==
[~2017-03-27] VITALS: Ht 182.9 cm; Wt 102.7 kg
[2017-03-27 12:31] VITALS: BP 154/70; PULSE 62; RESP 18; TEMP 98.2; O2SAT 94
--- NOTE | 2017-03-27 15:39 | PD ---
HPI Chief Complaint: Musculoskeletal Complaint Time Seen by Provider: 14:39 Travel History International Travel<30 days: No Contact w/Intl Traveler<30days: No Traveled to known affect area: No History of Present Illness HPI 81-year-old male presents to the ED for evaluation of 5 day history of left elbow pain. Onset after the patient fell backwards, striking his head and elbow in the process. He was evaluated at that time. Pain is rated 8/10, posterior elbow. It is worsened by certain movements of the elbow. He endorses occasionally zinging sensation down the forearm. He denies numbness, tingling, weakness, limitation to range of motion or loss of strength of the extremity. He's been treating at home with warm compresses with no improvement of symptoms. He denies previous injury to the area. PFSH Past Medical History Hx Anticoagulant Therapy: Yes (asa 81mg) Arthritis: Yes Asthma: No Autoimmune Disease: No Blood Disorders: No Anxiety: Yes Depression: No Heart Rhythm Problems: No Cancer: Yes (SKIN CANCER-NOSE, chin, shoulder, and back; COLON CANCER) Cardiac Catheterization: Yes Cardiovascular Problems: Yes (htn, cardiac blockage ) High Cholesterol: Yes Chemotherapy: Yes (1968) Chest Pain: No Congestive Heart Failure: No COPD: No Cerebrovascular Accident: No Coronary Artery Disease: Yes Diabetes: Yes (BORDERLINE) Patient Takes Glucophage: No Diminished Hearing: No Diverticulitis: Yes Endocrine: No Gastrointestinal Disorders: Yes (DIVERTICULITIS) GERD: Yes Genitourinary: No Headaches: No Hepatitis: No Hiatal Hernia: Yes Heparin Induced Thrombocytopen: No Hypertension: Yes Immune Disorder: No Implanted Vascular Access Dvce: No Kidney Stones: No Musculoskeletal: Yes Neurologic: Yes (PARKINSONS) Parkinson's Disease: Yes Psychiatric: Yes Reproductive: No Respiratory: Yes (copd) Immunizations Current: Yes Migraines: No Radiation Therapy: Yes Renal Failure: No Seizures: No Sleep Apnea: No Thyroid Disease: No Ulcer: No Tetanus Vaccination: < 5 Years Influenza Vaccination: Yes ?: Not Past Surgical History Abdominal Surgery: Yes (BILATERAL INGUINAL HERNIA REPAIR; COLON RESECTION) AICD: No Body Medical Devices: BILATERAL KNEES; 2 rods, plate, 18 screws Cardiac Surgery: No Cholecystectomy: Yes Coronary Artery Bypass Graft: No Ear Surgery: No Endocrine Surgery: No Eye Surgery: Yes (WALDO BLEPH 2012 /CATARACTS) Genitourinary Surgery: No Hysterectomy: No Joint Replacement: Yes (BILATERAL KNEES) Neurologic Surgery: No Oral Surgery: No Pacemaker: No Other Surgery: Yes (NASAL SX SECONDAY TO [place]) Social History Alcohol Use: No Tobacco Use: No Substance Use: No Allergies-Medications (Allergen,Severity, Reaction): Coded Allergies: morphine (Verified Allergy, Intermediate, 03/27/17) Reported Meds & Prescriptions Reported Meds & Active Scripts Active Tramadol (Tramadol HCl) 50 Mg Tab 50 Mg PO Q6H PRN Bacitracin Topical 500 Unit/Gm Oint 1 Applic TOPICAL BID Reported Halcion (Triazolam) 0.25 Mg Tab 0.25 Mg PO HS Ropinirole 0.25 Mg Tab 0.25 Mg PO TID Iron (Ferrous Gluconate) 236 Mg (27 Mg Iron) Tab 1 Tab PO TID Arthri-Flex Tablet (Gluc/MSM/Colgn2/Hyal/Antiarth3) 375 Mg-375 Mg-20 Mg Tablet 1 Tab PO DAILY Cosamin DS (Glucosamine-Chondroitin) 500-400 Mg Tab 1 Tab PO DAILY Multivitamins (Multiple Vitamin) 1 Cap Cap 1 Cap PO DAILY Losartan (Losartan Potassium) 100 Mg Tab 100 Mg PO DAILY Potassium Chloride ER (Potassium Chloride) 8 Meq Tab 8 Meq PO DAILY Albuterol Neb (Albuterol Sulfate) 2.5 Mg/3 Ml Neb 2.5 Mg NEB Q4HR NEB PRN Vitamin D3 (Cholecalciferol) 1,000 Unit Tab 1,000 Units PO DAILY Buspirone (Buspirone HCl) 15 Mg Tab 15 Mg PO TID Gabapentin 100 Mg Cap 100 Mg PO TID Sinemet (Carbidopa-Levodopa) 25-100 Mg Tab 1 Tab PO TID Zocor (Simvastatin) 20 Mg Tab 20 Mg PO DAILY Omeprazole 20 Mg Tab 20 Mg PO DAILY Bystolic (Nebivolol) 20 Mg Tab 10 Mg PO DAILY Aspirin 81 (Aspirin) 81 Mg Tabdr 81 Mg PO DAILY Tamsulosin (Tamsulosin HCl) 0.4 Mg Cap 0.4 Mg PO HS Furosemide 80 Mg Tab 80 Mg PO DAILY Review of Systems Except as stated in HPI: all other systems reviewed are Neg Physical Exam Narrative GENERAL: Well-nourished, well-developed white male in no acute distress. SKIN: Focused skin assessment warm/dry. HEAD: Normocephalic. Sutures on the occiput, well healing, no active drainage, warmth, erythema, edema. EYES: No scleral icterus. No injection or drainage. NECK: Supple, trachea midline. No JVD or lymphadenopathy. CARDIOVASCULAR: Regular rate and rhythm without murmurs, gallops, or rubs. RESPIRATORY: Breath sounds equal bilaterally. No accessory muscle use. GASTROINTESTINAL: Abdomen soft, non-tender, nondistended. MUSCULOSKELETAL: No cyanosis, or edema. FOCUSED LEFT UPPER EXTREMITY EXAM: 2+ radial pulse. Tender edema noted over the olecranon bursa. No warmth, erythema, cellulitic streaking noted. Patient has a strong line maintainer section strength he is able to flex, extend, supinate and pronate the elbow. Cap refill less than 2 seconds. Sensation intact to light touch distally. BACK: Nontender without obvious deformity. No CVA tenderness. Data Data Last Documented VS Vital Signs Date Time Temp Pulse Resp B/P (MAP) Pulse Ox O2 Delivery O2 Flow Rate FiO2 03/27/17 12:31 98.2 62 18 154/70 (98) 94 Orders Orders Elbow, Complete (4 Vws) (03/27/17 14:37) Ice/Cold Pack (03/27/17 14:37) Ibuprofen (Motrin) (03/27/17 16:15) Ed Discharge Order (03/27/17 16:35) MDM Medical Decision Making Medical Screen Exam Complete: Yes Emergency Medical Condition: Yes Differential Diagnosis Traumatic bursitis versus contusion versus fracture versus joint effusion versus dislocation versus other Narrative Course 81-year-old male presents to the ED for evaluation of 5 day history of left elbow pain. Onset after the patient fell backwards, striking his head and elbow in the process. He was evaluated at that time. Pain is rated 8/10, posterior elbow. It is worsened by certain movements of the elbow. He endorses occasionally zinging sensation down the forearm. He denies numbness, tingling, weakness, limitation to range of motion or loss of strength of the extremity. Vitals reviewed. On physical exam the patient has tender edema of the posterior aspect of the elbow, suspicious for traumatic bursitis. No erythema, warmth, swelling or streaking. Patient is able to flex and extend the elbow completely. X-rays with a small lucency but no effusion noted. I discussed the x-ray with Dr. High. I have low suspicion for fracture. Patient is not a good candidate for NSAIDs. I'll provide him with a short course of tramadol and sent him to see his preferred orthopedist, Dr. Granda for possible aspiration. He is cautioned to return should signs of cellulitis such as warmth, redness, fevers occur. Patient is agreeable to this plan. Stable and discharged home. Diagnosis Primary Impression: Traumatic bursitis Referrals: Mir Granda MD Orthopedist Patient Instructions: Elbow Bursitis (GEN), General Instructions Additional Instructions: Rest, ice, elevate the extremity. Apply ice no longer than 10-15 minutes per hour a few times a day. Take tramadol as prescribed. Return to normal, gentle activity as tolerated. Follow-up with the orthopedist as discussed. Return to the ED for any urgent or emergent medical condition. Med/Other Pt SpecificInfo: Prescription(s) given Scripts Tramadol (Tramadol) 50 Mg Tab 50 MG PO Q6H Y for PAIN, #12 TAB 0 Refills Prov: Nyla Monsalve MD 03/27/17 Disposition: 01 DISCHARGE HOME Condition: Stable Anita Ren Mar 27, 2017 15:39
[2017-03-27] MEDS ORDERED: IBUPROFEN 400 MG TAB PO ONE (16:15)
--- NOTE | 2017-03-27 16:23 | RADRPT ---
EXAM DATE/TIME: 03/27/2017 15:03 [facility] COMPARISON: No previous studies available for comparison. INDICATIONS : Pain in olecranon of left elbow after falling 6 days ago. MEDICAL HISTORY : None. SURGICAL HISTORY : None. ENCOUNTER: Initial ACUITY: 4 - 6 days PAIN SCORE: 6/10 LOCATION: Left elbow. FINDINGS: Moderate degenerative changes are evident. There is no joint effusion. Alignment is anatomic. Amelia ncy is seen from the joint to mid olecranon tibia nondisplaced fracture [facility] joint effusion suggests arch. CT scan could be used to confirm the patient's symptomatic. CONCLUSION: Degenerative changes. No definite fracture. Geovani High MD FACR on March 27, 2017 at 16:19 Board Certified Radiologist. This report was verified electronically.
[2017-03-27] MEDS ORDERED: TRAM50TA PO ×2 (16:44→16:45)
== END 2017-03-27 17:11 | disposition home or self-care (01) ==
LOC: PHED 12:03 → PHEFT 17:11
DX: M71.522 Other bursitis, not elsewhere classified, left elbow (principal); I10 Essential (primary) hypertension; E78.00 Pure hypercholesterolemia, unspecified; E11.9 Type 2 diabetes mellitus without complications; G20 Parkinson's disease; Z79.01 Long term (current) use of anticoagulants
CPT/HCPCS: 73080; 99283

== ENCOUNTER 2017-06-03 22:52 | Emergency (ER) | payer MEDICARE, BC ==
[~2017-06-03] VITALS: Ht 182.9 cm; Wt 105.0 kg
[~2017-06-03 22:52] MED LIST changes: +TRAM50TA PO
[2017-06-03 23:00] VITALS: BP 184/84; PULSE 60; RESP 18; TEMP 98.1; O2SAT 97
--- NOTE | 2017-06-04 02:17 | RADRPT ---
EXAM DATE/TIME: 06/04/2017 01:11 [facility] COMPARISON: CT BRAIN W/O CONTRAST, March 22, 2017, 17:19. INDICATIONS : Trauma, fall, laceration to posterior head. RADIATION DOSE: 66.69 CTDIvol (mGy) MEDICAL HISTORY : Hypertension. Parkinsons. Carcinoma, skin. SURGICAL HISTORY : None. ENCOUNTER: Initial ACUITY: 1 day PAIN SCALE: 3/10 LOCATION: cranial TECHNIQUE: Multiple contiguous axial images were obtained of the head. Using automated exposure control and adj ustment of the mA and/or kV according to patient size, radiation dose was kept as low as reasonably a chievable to obtain optimal diagnostic quality images. DICOM format image data is available electro nically for review and comparison. FINDINGS: CEREBRUM: The ventricles are normal for age. No evidence of midline shift, mass lesion, hemorrhage or acute in farction. No extra-axial fluid collections are seen. Atrophy and chronic low attenuation in the domitila ventricular white matter again noted. POSTERIOR FOSSA: The cerebellum and brainstem are intact. The 4th ventricle is midline. The cerebellopontine angle i s unremarkable. EXTRACRANIAL: The visualized portion of the orbits is intact. SKULL: The calvaria is intact. No evidence of skull fracture. CONCLUSION: No bleed or other acute intracranial abnormality. Chronic white matter changes are again noted. Wale Black MD on June 04, 2017 at 1:29 Board Certified Radiologist. This report was verified electronically.
--- NOTE | 2017-06-04 02:17 | RADRPT ---
EXAM DATE/TIME: 06/04/2017 01:11 [facility] COMPARISON: CT CERVICAL SPINE W/O CONTRAST, March 22, 2017, 17:19. INDICATIONS : Trauma, fall, laceration to posterior head. RADIATION DOSE: 26.54 CTDIvol (mGy) MEDICAL HISTORY : Hypertension. Parkinsons. Skin cancer. SURGICAL HISTORY : None. ENCOUNTER: Initial ACUITY: 1 day PAIN SCALE: 0/10 LOCATION: neck TECHNIQUE: Volumetric scanning of the cervical spine was performed. Multiplanar reconstructions in the sagittal, coronal and oblique axial planes were performed. Using automated exposure control and adjustment o f the mA and/or kV according to patient size, radiation dose was kept as low as reasonably achievable to obtain optimal diagnostic quality images. DICOM format image data is available electronically f or review and comparison. FINDINGS: No fracture or subluxation seen of the cervical spine. Vertebral bodies have normal height. Mild, deg enerative appearing kyphosis again noted centered around C4. Moderate disc space narrowing with small, broad posterior disc osteophyte complexes and moderate bila teral uncovertebral and facet osteoarthritis again seen at C4/C5, C5/C6 and C6 on C7. Moderate osteoa rthritis seen anteriorly at C1/C2. Paravertebral soft tissues are within normal limits. CONCLUSION: Intact cervical spine. Degenerative changes are again noted. Wale Black MD on June 04, 2017 at 1:30 Board Certified Radiologist. This report was verified electronically.
[2017-06-04 03:01] VITALS: BP 178/79
--- NOTE | 2017-06-15 20:57 | PD ---
HPI Chief Complaint: Fall Time Seen by Provider: 00:57 Travel History International Travel<30 days: No Contact w/Intl Traveler<30days: No Traveled to known affect area: No History of Present Illness HPI 81-year-old male presents to the emergency department by private transportation of the care of her spouse for evaluation of contusion abrasion to the posterior occiput after non-syncopal slip and fall off of his rolling seated walker. Injury occurred just prior to arrival to the emergency department. Patient was being wheeled on his walker across an uneven surface and in the process caught on the ground and caused him to tip out of the seat of the walker. Patient fell backwards hitting the back of his head. There was no loss of consciousness. Episode was witnessed. Paramedics were at the scene as they were in the process of wheeling the patient when the injury occurred. Patient has had previous head injury to the same area. Patient takes aspirin daily. Patient takes no other blood thinning agents. Patient denies any upper extremity or lower extremity numbness tingling or weakness. Immunizations are current. Patient denies any neck pain complains of mild headache. PFSH Past Medical History Narrative Medical Arthritis anxiety CAD borderline diabetes dyslipidemia colon cancer previous chemotherapy radiation therapy hypertension Parkinson's disease; bilateral knee surgery; nursing notes reviewed Hx Anticoagulant Therapy: Yes (asa 81mg) Arthritis: Yes Asthma: No Autoimmune Disease: No Blood Disorders: No Anxiety: Yes Depression: No Heart Rhythm Problems: No Cancer: Yes (SKIN CANCER-NOSE, chin, shoulder, and back; COLON CANCER) Cardiac Catheterization: Yes Cardiovascular Problems: Yes (CARDIAC BLOCKAGE) High Cholesterol: Yes Chemotherapy: Yes (1967) Chest Pain: No Congestive Heart Failure: No COPD: No Cerebrovascular Accident: No Coronary Artery Disease: Yes Diabetes: Yes (BORDERLINE) Patient Takes Glucophage: No Diminished Hearing: No Diverticulitis: Yes Endocrine: No Gastrointestinal Disorders: Yes (DIVERTICULITIS) GERD: Yes Genitourinary: No Headaches: No Hepatitis: No Hiatal Hernia: Yes Heparin Induced Thrombocytopen: No Hypertension: Yes Immune Disorder: No Implanted Vascular Access Dvce: No Kidney Stones: No Medical other: No Musculoskeletal: Yes Neurologic: Yes (PARKINSONS) Parkinson's Disease: Yes Psychiatric: Yes Reproductive: No Respiratory: Yes (COPD) Immunizations Current: Yes Migraines: No Radiation Therapy: Yes Renal Failure: No Seizures: No Sleep Apnea: No Thyroid Disease: No Ulcer: No Past Surgical History Abdominal Surgery: Yes (BILATERAL INGUINAL HERNIA REPAIR; COLON RESECTION) AICD: No Body Medical Devices: BILATERAL KNEES; 2 rods, plate, 18 screws Cardiac Surgery: No Cholecystectomy: Yes Coronary Artery Bypass Graft: No Ear Surgery: No Endocrine Surgery: No Eye Surgery: Yes ([facility] BLEPH 2012 /CATARACTS) Genitourinary Surgery: No Hysterectomy: No Joint Replacement: Yes (BILATERAL KNEES) Neurologic Surgery: No Oral Surgery: No Pacemaker: No Other Surgery: Yes (NASAL SX SECONDAY TO [place]) Social History Alcohol Use: No Tobacco Use: No (QUIT 40 YEARS AGO) Substance Use: No Allergies-Medications (Allergen,Severity, Reaction): Coded Allergies: morphine (Verified Allergy, Intermediate, 06/04/17) Reported Meds & Prescriptions Reported Meds & Active Scripts Active Bacitracin Topical 500 Unit/Gm Oint 1 Applic TOPICAL BID Reported Halcion (Triazolam) 0.25 Mg Tab 0.25 Mg PO HS Ropinirole 0.25 Mg Tab 0.25 Mg PO TID Iron (Ferrous Gluconate) 236 Mg (27 Mg Iron) Tab 1 Tab PO TID Arthri-Flex Tablet (Gluc/MSM/Colgn2/Hyal/Antiarth3) 375 Mg-375 Mg-20 Mg Tablet 1 Tab PO DAILY Cosamin DS (Glucosamine-Chondroitin) 500-400 Mg Tab 1 Tab PO DAILY Multivitamins (Multiple Vitamin) 1 Cap Cap 1 Cap PO DAILY Losartan (Losartan Potassium) 100 Mg Tab 100 Mg PO DAILY Potassium Chloride ER (Potassium Chloride) 8 Meq Tab 8 Meq PO DAILY Albuterol Neb (Albuterol Sulfate) 2.5 Mg/3 Ml Neb 2.5 Mg NEB Q4HR NEB PRN Vitamin D3 (Cholecalciferol) 1,000 Unit Tab 1,000 Units PO DAILY Buspirone (Buspirone HCl) 15 Mg Tab 15 Mg PO TID Gabapentin 100 Mg Cap 100 Mg PO TID Sinemet (Carbidopa-Levodopa) 25-100 Mg Tab 1 Tab PO TID Zocor (Simvastatin) 20 Mg Tab 20 Mg PO DAILY Omeprazole 20 Mg Tab 20 Mg PO DAILY Bystolic (Nebivolol) 20 Mg Tab 10 Mg PO DAILY Aspirin 81 (Aspirin) 81 Mg Tabdr 81 Mg PO DAILY Tamsulosin (Tamsulosin HCl) 0.4 Mg Cap 0.4 Mg PO HS Furosemide 80 Mg Tab 80 Mg PO DAILY Review of Systems Except as stated in HPI: all other systems reviewed are Neg General / Constitutional: No: Fever, Chills Eyes: No: Visual changes HENT: No: Vertigo, Congestion Cardiovascular: No: Chest Pain or Discomfort, Palpitations, Syncope Respiratory: No: Shortness of Breath, Pleuritic Pain Gastrointestinal: No: Nausea, Vomiting, Abdominal Pain Genitourinary: No: Pelvic Pain, Flank Pain Musculoskeletal: No: Myalgias, Arthralgias Skin: No Rash Neurologic: No: Weakness, Dizziness, Syncope Psychiatric: No: Anxiety Endocrine: No: Heat Intolerance Hematologic/Lymphatic: No: Lymph Node Enlargement Physical Exam Narrative GENERAL: Well-developed well-nourished male no acute distress no respiratory distress; GCS 15 SKIN: Warm and dry. HEAD: Normocephalic. Posterior occiput with soft tissue swelling superficial abrasion scant serous drainage no laceration no hematoma no bony abnormality. EYES: No scleral icterus. No injection or drainage. NECK: Supple, trachea midline. No JVD or lymphadenopathy. No reproducible midline tenderness to direct palpation along the cervical spine no bony step- off. CARDIOVASCULAR: Regular rate and rhythm without murmurs, gallops, or rubs. RESPIRATORY: Breath sounds equal bilaterally. No accessory muscle use. GASTROINTESTINAL: Abdomen soft, non-tender, nondistended. MUSCULOSKELETAL: No cyanosis, or edema. BACK: Nontender without obvious deformity. No CVA tenderness. Data Data Orders Orders Ct Brain W/O Iv Contrast(Rout) (06/04/17 ) Ct Cerv Spine W/O Contrast (06/04/17 ) Ed Discharge Order (06/04/17 03:05) [facility] Medical Decision Making Medical Screen Exam Complete: Yes Emergency Medical Condition: Yes Medical Record Reviewed: Yes Interpretation(s) Last Impressions Head CT 06/04/17 0000 Signed Impressions: Service Date/Time: Sunday, June 04, 2017 01:11 - CONCLUSION: No bleed or other acute intracranial abnormality. Chronic white matter changes are again noted. Wale Black MD Cervical Spine CT 06/04/17 0000 Signed Impressions: Service Date/Time: Sunday, June 04, 2017 01:11 - CONCLUSION: Intact cervical spine. Degenerative changes are again noted. Wale Black MD Differential Diagnosis Minor closed head injury, concussion, scalp contusion, ICH, skull fracture, cervical spine sprain strain fracture or cord compression Narrative Course Due to mechanism of injury CT brain noncontrast and CT cervical spine imaging studies ordered Patient resting comfortably Abrasion to scalp area cleansed no suture repair required Imaging studies reveal no acute abnormality Patient is stable for outpatient management follow-up for scalp contusion cervical strain and minor closed head injury. Diagnosis Primary Impression: Scalp contusion Additional Impressions: Cervical strain Minor closed head injury Patient Instructions: Concussion (ED), Head Injury (ED), Contusion in Adults ( ED), Neck Pain (ED) Departure Forms: Tests/Procedures Additional Instructions: FOLLOW HEAD INJURY INSTRUCTIONS X 24 HRS TYLENOL NEEDED EVERY 4 HRS FOR HEADACHE FOR FEVER OF GREATER 100.4 ICE PACK INTERMITTENLY POLY SPORIN OINTMENT TO ABRASIONS Disposition: 01 DISCHARGE HOME Jaimie Gregorio MD Jun 15, 2017 20:57
== END 2017-06-04 03:39 | disposition home or self-care (01) ==
LOC: PHED 22:52
DX: S09.90XA Unspecified injury of head, initial encounter (principal); S00.03XA Contusion of scalp, initial encounter; W07.XXXA Fall from chair, initial encounter; S16.1XXA Strain of muscle, fascia and tendon at neck level, initial encounter; M19.90 Unspecified osteoarthritis, unspecified site; E78.00 Pure hypercholesterolemia, unspecified; I25.10 Atherosclerotic heart disease of native coronary artery without angina pectoris; E11.9 Type 2 diabetes mellitus without complications; K57.92 Diverticulitis of intestine, part unspecified, without perforation or abscess without bleeding; I10 Essential (primary) hypertension; G20 Parkinson's disease; J44.9 Chronic obstructive pulmonary disease, unspecified; Z79.899 Other long term (current) drug therapy; Z85.038 Personal history of other malignant neoplasm of large intestine; Z87.891 Personal history of nicotine dependence
CPT/HCPCS: 70450; 72125; 99283